=== PATIENT | male | born 1965 ===

== ENCOUNTER 2024-01-24 17:31 | Emergency (ER) | payer OTHER ==
[~2024-01-24] VITALS: Ht 182.9 cm; Wt 90.7 kg
[2024-01-24] MEDS ORDERED: Ketorolac Tromethamine 30mg Vial IM ONE (19:45)
[2024-01-24] MEDS ORDERED: Cyclobenzaprine HCl 10 MG Tab PO ONE (19:45)
[2024-01-24] MEDS ORDERED: CYCL10 PO (20:14)
== END 2024-01-24 20:13 | disposition home or self-care (01) ==
LOC: ER 17:31
DX: S29.012A Strain of muscle and tendon of back wall of thorax, initial encounter (principal); X58.XXXA Exposure to other specified factors, initial encounter
CPT/HCPCS: 71046; 96372; 99283-25; A9270; J1885